=== PATIENT | female | born 1950 | race Caucasian/White ===

== ENCOUNTER → 2017-02-15 | Outpatient (CLI) | payer MEDICARE ==
[2017-02-15 10:16] LABS: Blood Urea Nitrogen 22 mg/dL (7-17)
--- NOTE | 2017-02-15 11:45 | CT ---
EXAMINATION TYPE: CT abdomen pelvis w con DATE OF EXAM: 02/15/2017 COMPARISON: 11/24/2011 INDICATION: Diverticulitis DLP: 1563 mGycm, Automated exposure control for dose reduction was used. CONTRAST: 100 ml mL of Omnipaque 300. Study performed with Oral Contrast TECHNIQUE: Axial images were obtained from above the diaphragm to the pubic rami in the axial plane a t 5 mm thick sections. Reconstructed images are reviewed on the computer in the coronal plane. FINDINGS: Limited CT sections are obtained the lung bases. The lung bases are clear. Moderate size hiatal her maverick is present. There is tortuosity of the descending thoracic aorta. CT ABDOMEN: Liver: Normal Spleen: Normal Pancreas: Normal Adrenal glands: Left adrenal gland has a 1.0 cm hypodense area could be a small angiomyolipoma. This may have been present previously. Right adrenal gland appears unremarkable. Gallbladder: Surgically absent. Kidneys: No masses are evident. No hydronephrosis is present. Small cortical renal cysts are presen t bilaterally. Delayed images were obtained through the kidneys, which remain unremarkable. Aorta: Vascular calcification is within the aorta. Inferior vena cava: Normal. CT PELVIS: There may be some thickening of the wall of the cecum. Mild typhlitis could be considered. Small francisco l loops appear nondilated. Oral contrast extends to the colon. Descending colon has a normal wall kvng iber. Diverticuli are within the descending colon and sigmoid colon without evidence of acute diverti culitis. There are loops of bowel which are incompletely distended or lack oral contrast limiting the ir evaluation. Appendix: Not visualized. No suspicious changes to suggest acute diverticulitis are evident. Urinary bladder: Normal. Genitourinary structures: Uterus and adnexa appear within normal limits. No free fluid is within the pelvis. Osseous structures: No suspicious lytic or sclerotic lesions. Facet degenerative changes are within t he lumbar spine. IMPRESSIONS: 1. There may be some mild thickening of the cecum. Correlate for mild focal colitis. 2. 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 3. Small cortical renal cysts present bilaterally. 4. Diverticulosis without acute diverticulitis within the descending colon and sigmoid colon regions. 5. Moderate size hiatal hernia.
== END | disposition home or self-care (01) ==
LOC: RADCTMAIN 09:27
PROVIDERS: ATTEND Surgery
DX: K57.30 Diverticulosis of large intestine without perforation or abscess without bleeding (principal); K44.9 Diaphragmatic hernia without obstruction or gangrene; N28.1 Cyst of kidney, acquired
CPT/HCPCS: 82565; 84520; 74177; Q9967

== ENCOUNTER 2017-02-24 09:14 | Day surgery (SDC) | payer MEDICARE ==
[2017-02-21 16:09] VITALS: BMI 34.3
[~2017-02-24 09:14] MED LIST: LACTATED RINGERS 1,000 ML IV SCH
[2017-02-24 09:40] VITALS: TEMP 97.8
[2017-02-24] MEDS ORDERED: LIDOCAINE 1% 20 ML VIAL (10MG/ML) FOR IV START INTRADERMA ONE (09:50)
[2017-02-24] MEDS ORDERED: PROPOFOL 10 MG/ML 20 ML VIAL IV ONE (10:09)
[2017-02-24] MEDS ORDERED: fentaNYL (PF) 50 MCG/ML 2 ML AMP ONE (10:09)
[2017-02-24] MEDS ORDERED: GLYCOPYRROLATE 0.2 MG/ML 2 ML VIAL ONE (10:09)
--- NOTE | 2017-02-24 10:12 | P.GSHP ---
History of Present Illness H&P Date: 02/24/17 Chief Complaint: Anthony velazquez is a 66-year-old female referred from Dr. Benedict Elizondo. Patient presents today for colonoscopy. She's had complaints of diverticulitis and diarrhea. Past Medical History Past Medical History: Hypertension History of Any Multi-Drug Resistant Organisms: None Reported Past Surgical History: Cholecystectomy, Joint Replacement, Tubal Ligation Additional Past Surgical History / Comment(s): bilateral knee replacement, D&C, breast biospy Past Anesthesia/Blood Transfusion Reactions: Postoperative Nausea & Vomiting ( PONV) Past Psychological History: No Psychological Hx Reported Smoking Status: Never smoker Past Alcohol Use History: None Reported Past Drug Use History: None Reported - Past Family History Father Family Medical History: Cancer Medications and Allergies Home Medications Medication Instructions Recorded Confirmed Type Hydrochlorothiazide [Hydrodiuril] 25 mg PO DAILY 03/04/14 02/24/17 History amLODIPine BESYLATE/BENAZEPRIL 12.5 mg PO DAILY 03/04/14 02/24/17 History [Lotrel 10-20 mg Capsule] Allergies Allergy/AdvReac Type Severity Reaction Status Date / Time No Known Allergies Allergy Verified 02/24/17 09:30 Surgical - Exam Vital Signs Temp Pulse Resp BP Pulse Ox 97.8 F 69 18 122/83 95 02/24/17 09:39 02/24/17 09:39 02/24/17 09:39 02/24/17 09:39 02/24/17 09:39 - General well developed, no distress - Eyes PERRL - ENT normal pinna - Neck no masses - Respiratory normal expansion - Cardiovascular Rhythm: regular - Abdomen Abdomen: soft, non tender Assessment and Plan Assessment: Diverticulitis Diarrhea We'll perform colonoscopy.
--- NOTE | 2017-02-24 10:36 | P.OP ---
Date of Procedure: 02/24/17 Preoperative Diagnosis: GERD Diverticulitis Diarrhea Postoperative Diagnosis: Antral gastritis Large hiatal hernia Esophagitis Diverticulosis Rectal polyp Normal cecum Procedure(s) Performed: EGD Colonoscopy Anesthesia: MAC Surgeon: Jaziel Moreno Pathology: other (Antrum, esophagus,) Disposition: PACU Description of Procedure: The patient's placed on the endoscopy table in the lateral position. She received IV sedation. The gastroscope placed oropharynx passed in the esophagus and stomach. Scope was then placed through the pylorus. The first and second portion of the duodenum appeared normal. Scope was then brought back the antrum and this appeared mildly inflamed. A biopsies performed. The scope was retroflexed and remainder stomach. There was a large hiatal hernia visualized. The GE junction was at 38 cm. The distal esophagus appeared mildly inflamed a biopsies performed. Proximal esophagus appeared normal. The scope was then withdrawn for patient. Next digital rectal exam was performed which revealed no masses. Flexible colonoscope was then placed patient anus passed rotator colon. The ileocecal valve was visually's. The cecum appeared normal. There is no inflammation the cecum. Scope was then withdrawn remainder the ascending colon, transverse colon appeared normal. In the descending colon was a few scattered diverticula. In the sigmoid colon there was extensive diverticular changes. The scope was then brought back the rectum and a polyp seen this removed with the cold forcep. The scope was then withdrawn for patient.
[2017-02-24 10:46] VITALS: RESP 16
[2017-02-24 11:08] VITALS: BP 103/65; PULSE 54
== END 2017-02-24 11:30 | disposition home or self-care (01) ==
LOC: ORWHC2ENDO 09:14
PROVIDERS: ATTEND Surgery
DX: K29.60 Other gastritis without bleeding (principal); K62.1 Rectal polyp; K44.9 Diaphragmatic hernia without obstruction or gangrene; K57.30 Diverticulosis of large intestine without perforation or abscess without bleeding; I10 Essential (primary) hypertension; Z79.899 Other long term (current) drug therapy
CPT/HCPCS: 88305; 88342; 45380; 43239; J3010; J2704

== ENCOUNTER → 2017-06-29 | Outpatient (CLI) | payer MEDICARE ==
[2017-06-29 11:16] LABS: Basophils % (A) 1 %; Eosinophils # (A) 0.1 k/uL (0-0.7); Eosinophils % (A) 3 %; HCT 45.3 % (34.0-46.0); Lymphocytes # (A) 1.4 k/uL (1.0-4.8); Lymphocytes % (A) 28 %; MCH 31.9 pg (25.0-35.0); MCHC 33.1 g/dL (31.0-37.0); MCV 96.5 fL (80.0-100.0); Mean Platelet Volume 7.3; Monocytes # (A) 0.4 k/uL (0-1.0); Monocytes % (A) 9 %; Neutrophils # (A) 2.8 k/uL (1.3-7.7); Neutrophils % (A) 57 %; Platelet Count 214 k/uL (150-450); RBC 4.69 m/uL (3.80-5.40); RDW 12.6 % (11.5-15.5); WBC 4.9 k/uL (3.8-10.6)
== END | disposition home or self-care (01) ==
LOC: LABPAT 10:33
PROVIDERS: ATTEND Surgery
DX: Z01.818 Encounter for other preprocedural examination (principal); Z01.812 Encounter for preprocedural laboratory examination; K21.0 Gastro-esophageal reflux disease with esophagitis; R13.19 Other dysphagia
CPT/HCPCS: 36415; 84132; 85025; 93005

== ENCOUNTER 2017-07-05 06:55 | Day surgery (SDC) | payer MEDICARE ==
[2017-06-27 08:52] VITALS: BMI 35.0
[~2017-07-05 06:55] MED LIST changes: +DEXAMETHASONE SOD PHOSPHATE 10 MG/ML 1 ML VIAL IV ONE; +HEPARIN SODIUM,PORCINE 5,000 UNIT/ML 1 ML VIAL SQ ONE; +LIDOCAINE 1% 20 ML VIAL (10MG/ML) FOR IV START INTRADERMA PRN; +MORPHINE SULFATE 4 MG/ML SYRINGE IV PRN; +ONDANSETRON 4 MG/2 ML VIAL IVP ONE; +ceFAZolin IN SWFI 2 GM/20 ML SYRINGE IVP ONE
--- NOTE | 2017-07-05 07:55 | P.GSHP ---
History of Present Illness H&P Date: 07/05/17 Chief Complaint: GERD, dysphagia This is a 66-year-old female who presents today for laparoscopic Herman fundoplication. Patient has undergone previous EGD. She is found have a large hiatal hernia. She's had GERD and dysphagia symptoms. Patient's where the surgery including conversion open procedure and injury to the stomach liver and spleen. She is also aware the risk of recurrent GERD symptoms. Past Medical History Past Medical History: Hypertension, Osteoarthritis (OA) Additional Past Medical History / Comment(s): hiatal hernia, diverticulitis, "leaky heart valve". current fungal infection armpits and under breast treating with nystatin History of Any Multi-Drug Resistant Organisms: None Reported Past Surgical History: Cholecystectomy, Joint Replacement, Tubal Ligation Additional Past Surgical History / Comment(s): bilateral knee replacement, D&C, breast biospy Past Anesthesia/Blood Transfusion Reactions: Postoperative Nausea & Vomiting ( PONV) Smoking Status: Never smoker - Past Family History Father Family Medical History: Cancer Mother Family Medical History: No Reported History Medications and Allergies Home Medications Medication Instructions Recorded Confirmed Type Hydrochlorothiazide [Hydrodiuril] 12.5 mg PO DAILY 03/04/14 07/05/17 History Losartan Potassium [Cozaar] 100 mg PO DAILY 06/27/17 07/05/17 History Nystatin 15 gm TP BID 06/27/17 07/05/17 History Allergies Allergy/AdvReac Type Severity Reaction Status Date / Time No Known Allergies Allergy Verified 07/05/17 07:07 Surgical - Exam Vital Signs Temp Pulse Resp BP Pulse Ox 97.8 F 73 16 132/79 96 07/05/17 07:08 07/05/17 07:08 07/05/17 07:08 07/05/17 07:08 07/05/17 07:08 - General well developed, no distress - Eyes PERRL - ENT normal pinna - Neck no masses - Respiratory normal expansion - Cardiovascular Rhythm: regular - Abdomen Abdomen: soft, non tender Assessment and Plan Assessment: GERD, dysphagia Large hiatal hernia We'll perform laparoscopic Herman fundal plication.
[2017-07-05] MEDS ORDERED: SUCCINYLCHOLINE CHLORIDE 100 MG/5 ML SYR IV ONE (07:59)
[2017-07-05] MEDS ORDERED: HYDROmorphone (PF) 1 MG/ML ONE (07:59)
[2017-07-05] MEDS ORDERED: LIDOCAINE 1% INJ 10MG/ML (20 ML MDV) ONE (07:59)
[2017-07-05] MEDS ORDERED: PROPOFOL 10 MG/ML 20 ML VIAL IV ONE (07:59)
[2017-07-05] MEDS ORDERED: ePHEDrine SULFATE/0.9% NACL/PF 50 MG/5 ML SYRINGE IV ONE (07:59)
[2017-07-05] MEDS ORDERED: NEOSTIGMINE 1 MG/ML 10 ML VIAL ONE (07:59)
[2017-07-05] MEDS ORDERED: ROCURONIUM BROMIDE 10 MG/ML 10 ML VIAL IV ONE (07:59)
[2017-07-05] MEDS ORDERED: fentaNYL (PF) 50 MCG/ML 2 ML AMP ONE (07:59)
[2017-07-05] MEDS ORDERED: GLYCOPYRROLATE 0.2 MG/ML 2 ML VIAL ONE (07:59)
[2017-07-05] MEDS ORDERED: MIDAZOLAM 2 MG/2 ML VIAL ONE (07:59)
[2017-07-05] MEDS ORDERED: BUPIVACAINE (PF) 0.5% 30 ML VIAL SQ ONE (08:31)
[2017-07-05] MEDS ORDERED: LACTATED RINGERS 1,000 ML IV ONE (08:52)
[2017-07-05] MEDS ORDERED: HYDROmorphone 0.5 MG/0.5 ML SYRINGE IVP PRN (09:17)
--- NOTE | 2017-07-05 09:17 | P.OP ---
Date of Procedure: 07/05/17 Preoperative Diagnosis: GERD Postoperative Diagnosis: GERD Procedure(s) Performed: Laparoscopic Herman fundoplication Anesthesia: ERNESTINE Surgeon: Jaziel Moreno Pathology: none sent Condition: stable Disposition: PACU Description of Procedure: The patient was placed on the operating table in the supine position. The patient received general anesthesia. And was placed in dorsal lithotomy position. The patient was prepped and draped in the usual sterile fashion. The skin incision sites were anesthetized with 1% local Xylocaine. The skin was incised in the left periumbilical area and then using a blade less 5 mm trocar under direct visualization panel cavity was entered. After adequate insufflation the laparoscope was then placed into the peritoneal cavity. Next a 5 mm trochars placed in the right epigastric position. Another 5 millimeter trocar the right lateral position. Another 5 millimeter trocar in the left lateral position a 5 mm trocar is placed in the left epigastric position. And then the initial 5 mm trocar was exchanged for a 10 mm trocar. The left lateral lobe liver was retracted. The hernia was seen. The crural defect was then dissected using the Harmonic scissors device. A 360 crural dissection was performed the esophagus stomach was reduced back into the peritoneal Cavity. The crural defect was then closed using 2-0 Ethibond suture. Next the fundus of the stomach was mobilized using the [place] scissors device. and then a 58-Hebrew bougie dilator was placed oropharynx passed into the esophagus and stomach the fundal plication wrap was then performed by grasping the fundus posteriorly and bringing it around the esophagus and stomach fundoplication was then performed using 2-0 Ethibond suture. Care was taken that the fundal location rested over top of the intra-abdominal esophagus. There was no injury seen to the stomach or esophagus. The dilator was then withdrawn. The abdomen was irrigated there is no bleeding seen. The trochars were then withdrawn and then skin incision sites were closed using 3-0 Monocryl suture Steri-Strips are applied. Patient thought procedure well and sent to recovery room in stable condition.
[2017-07-05] MEDS: HYDROmorphone 0.5 MG/0.5 ML SYRINGE IVP ONE ×2 (09:34→09:45)
[2017-07-05] MEDS: METOCLOPRAMIDE 5 MG/ML 2 ML VIAL IVP SCH ×2 (11:36→19:26)
[2017-07-05] MEDS: D5-0.45% NACL WITH KCL 20MEQ/L 1,000 ML IV SCH ×2 (11:49→20:13)
--- NOTE | 2017-07-05 15:02 | FL ---
EXAMINATION TYPE: FL esophagus cervic/pharynx DATE OF EXAM: 07/05/2017 HISTORY: Status post Calvin fundoplication COMPARISON: NONE TECHNIQUE: Single-contrast water-soluble Limited esophagram is performed FINDINGS: A few tertiary contractions were observed during the exam. No extravasation is evident. There is only mild hesitancy passing through the Calvin fundoplication. Stomach appears unremarkable. Overhead radiographs were obtained. No extravasation is evident. No significant free air is evident. Fluoroscopy time: 53 seconds Images: 11 IMPRESSION: 1. No extravasation or significant hesitancy status post Calvin fundoplication. 2. Presbyesophagus
[2017-07-06] MEDS: METOCLOPRAMIDE 5 MG/ML 2 ML VIAL IVP SCH ×2 (01:38→07:08)
[2017-07-06] MEDS: D5-0.45% NACL WITH KCL 20MEQ/L 1,000 ML IV SCH (03:00)
[2017-07-06] MEDS ORDERED: ENOXAPARIN 40 MG/0.4 ML SYRINGE SQ SCH (09:00)
[2017-07-06 09:22] VITALS: BP 139/79; PULSE 75; RESP 18; TEMP 98.1
--- NOTE | 2017-07-06 10:34 | P.DS ---
Providers Expected date of discharge: 07/06/17 Attending physician: Jaziel Moreno Consults: 07/05/17 09:17 Consult Physician Routine Consulting Provider: Benedict Cruz Consult Reason/Comments: Medical management Do you want consulting provider notified?: Yes Primary care physician: Benedict Cruz [facility] Course: 66-year-old female who has history of recurrent GERD symptoms. Presented to undergo an elective laparoscopic Herman fundoplication on the 05 of July. Patient had undergone a previous EGD which did show a large hiatal hernia. Given patient's symptoms of GERD with dysphagia elected to undergo procedure. Postop no events. Patient was up ambulating on the unit passing gas rectally and belching no stool tolerating a full liquid diet esophagram showed no evidence of a leak felt to be stable appropriate to proceed with a discharge to home Plan - Discharge Summary Discharge Rx Participant: Yes New Discharge Prescriptions: Continue Hydrochlorothiazide [Hydrodiuril] 12.5 mg PO DAILY Losartan Potassium [Cozaar] 100 mg PO DAILY Nystatin 15 gm TP BID Discharge Medication List Hydrochlorothiazide [Hydrodiuril] 12.5 mg PO DAILY 03/04/14 [History] Losartan Potassium [Cozaar] 100 mg PO DAILY 06/27/17 [History] Nystatin 15 gm TP BID 06/27/17 [History] Follow up Appointment(s)/Referral(s): Jaziel Moreno MD [STAFF PHYSICIAN] - 2 Weeks Activity/Diet/Wound Care/Special Instructions: No tub bath for six weeks. Shower daily. No lifting over 10 pounds for the next 6 weeks. Maintain full liquid diet for 2 weeks do not advance May use ice packs to surgical site. Ambulate every hour while awake Do not remove the plastic dressings from surgical sites Discharge Disposition: HOME SELF-CARE
--- NOTE | 2017-07-06 11:35 | P.CONS ---
History of Present Illness - Reason for Consult Consult date: 07/06/17 Medical Management - Chief Complaint s/p Herman fundoplication - History of Present Illness 66-year-old female who underwent elective laparoscopic Calvin fundoplication on 07/06/[address] Moreno for history of gastroesophageal reflux disease. Dr. Cruz was consulted for medical management. The patient has a medical history of hypertension and osteoarthritis. The patient was seen and examined at the bedside in rounds with Dr. Cruz. She is awake and alert. She is tolerating a full liquid diet. Denies nausea or vomiting. She is passing gas. No bowel movement since surgery. She states her pain is tolerable. Laparoscopic surgical sites without drainage or signs of infection. Incentive spirometer is at the bedside and patient states she is using 10 times an hour. Patient remains medically stable. She is afebrile. Last recorded pressure 139/79. She is on room air with oxygen saturations greater than 92%. She is anticipating discharge home today. Review of Systems GENERAL: Patient denies fever. Denies chills. EYES: Denies blurred vision. Denies vision changes. Denies eye pain. EARS, NOSE, MOUTH, & THROAT: Denies headache. Denies sore throat. Denies ear pain. RESPIRATORY: Denies cough. Denies shortness of breath. Denies sputum production. Denies hemoptysis. CARDIOVASCULAR: Denies chest pain or pressure. Denies palpitations. Denies arrhythmias. GASTROINTESTINAL: History of GERD. Denies abdominal pain. Denies diarrhea. Denies constipation. Denies nausea. Denies vomiting. Denies blood in the stool. GENITOURINARY: Denies urinary frequency. Denies burning. Denies dysuria. Denies cloudy urine. Denies blood in the urine. MUSCULOSKELETAL: Denies myalgias. Denies joint swelling. Denies decreased range of motion beyond patients baseline. INTEGUMENTARY: Denies pruitis. Denies rash. PSYCHIATRIC: Denies suicidal or homicial ideations. ENDOCRINE: Denies weight change. Denies polydipsia. Denies polyuria. HEMATOLOGIC: Denies bleeding disorders. Past Medical History Past Medical History: Hypertension, Osteoarthritis (OA) Additional Past Medical History / Comment(s): hiatal hernia, diverticulitis, "leaky heart valve". current fungal infection armpits and under breast treating with nystatin History of Any Multi-Drug Resistant Organisms: None Reported Past Surgical History: Cholecystectomy, Joint Replacement, Tubal Ligation Additional Past Surgical History / Comment(s): bilateral knee replacement, D&C, breast biospy, Herman fundiplication Past Anesthesia/Blood Transfusion Reactions: Postoperative Nausea & Vomiting ( PONV) Past Psychological History: No Psychological Hx Reported Smoking Status: Never smoker Past Alcohol Use History: None Reported Past Drug Use History: None Reported - Past Family History Father Family Medical History: Cancer Mother Family Medical History: No Reported History Medications and Allergies Home Medications Medication Instructions Recorded Confirmed Type Hydrochlorothiazide [Hydrodiuril] 12.5 mg PO DAILY 03/04/14 07/05/17 History Losartan Potassium [Cozaar] 100 mg PO DAILY 06/27/17 07/05/17 History Nystatin 15 gm TP BID 06/27/17 07/05/17 History Allergies Allergy/AdvReac Type Severity Reaction Status Date / Time No Known Allergies Allergy Verified 07/05/17 11:43 Physical Exam Vitals: Vital Signs Temp Pulse Resp BP Pulse Ox 07/06/17 08:20 98.1 F 75 18 139/79 93 L 07/06/17 06:05 97.4 F L 69 16 145/78 92 L 07/06/17 00:00 76 18 07/05/17 23:00 97.9 F 76 18 138/71 95 07/05/17 20:10 78 18 07/05/17 19:34 98.2 F 78 16 119/67 95 07/05/17 15:44 98.0 F 76 16 117/65 95 07/05/17 13:10 69 16 134/75 94 L 07/05/17 12:10 73 16 133/86 94 L 07/05/17 11:40 67 16 117/63 94 L Intake and Output 07/05/17 07/06/17 07/06/17 22:59 06:59 14:59 Intake Total 600 Output Total 450 1350 250 Balance 150 -1350 -250 Intake: Oral 600 Output: Urine 450 1350 250 Other: Voiding Method Toilet Toilet # Voids 1 GENERAL: This is a 66-year-old female in no apparent distress at the time of examination. Pleasant and cooperative. HEENT: Head is atraumatic, normocephalic. Pupils are equal, round, and reactive to light. Sclerae anicteric. Conjunctivae are clear. Mucus membranes of the mouth are moist. Neck is supple. RESPIRATORY: Clear to ausculation. No wheezes, rales, or rhonchi. No use of accessory muscles. Patient maintaining oxygen saturation greater than 92%. No chest wall tenderness is noted on palpation or with deep breathing. CARDIOVASCULAR: Regular rate and rhythm. S1 and S2 noted. No systolic or diastolic murmur auscultated. No JVD noted. No S3 or S4 noted. GASTROINTESTINAL: Laparoscopic surgical sites without drainage or signs of infection. No distention noted. Abdomen soft and round. Bowel sounds auscultated x 4 quadrants. INTEGUMENTARY: No cyanosis. No jaundice. No rashes noted. No cellulitis noted. EXTREMITIES: 2+ peripheral pulses. No evidence of peripheral edema. No calf tenderness noted. NEUROLOGIC: Cranial nerves II-XII intact. PSYCHIATRIC: Awake, alert, and oriented X 3. Appropriate affect. Intact judgement and insight. Assessment and Plan Plan: ASSESSMENT: Gastroesophageal reflux disease, s/p laparoscopic Calvin fundoplication, POD #1 Hypertension Osteoarthritis Obesity: BMI 35.0 PLAN: Continue postoperative management per Dr. Moreno. Advance diet per surgery. Pain control. Increase activity as tolerated. Incentive spirometer 10 times an hour. Resume home medications. Patient is stable for discharge from a medical standpoint when cleared by Dr. Moreno Nurse practitioner note has been reviewed by physician. Signing provider agrees with the documented findings, assessment, and plan of care.
== END 2017-07-06 10:55 | disposition home or self-care (01) ==
LOC: OR 06:55 → EDSTATUS 07:45 → 6PED 09:10 → OR 07-06 10:55
PROVIDERS: ATTEND Surgery
DX: K21.9 Gastro-esophageal reflux disease without esophagitis (principal); K44.9 Diaphragmatic hernia without obstruction or gangrene; I10 Essential (primary) hypertension; M19.90 Unspecified osteoarthritis, unspecified site; H91.90 Unspecified hearing loss, unspecified ear; I38 Endocarditis, valve unspecified; B48.8 Other specified mycoses; Z79.899 Other long term (current) drug therapy
CPT/HCPCS: 74210; 43280; J2250; J1644; J1100; J2710; J2765 ×2; J2405; J2001; J1650; J3010; J1170 ×2; J0330; J2704; J0690

== ENCOUNTER → 2017-12-08 | Outpatient (CLI) | payer MEDICARE ==
--- NOTE | 2017-12-11 09:27 | MM ---
Reason for exam: screening (asymptomatic). Last mammogram was performed 1 year ago. History: Patient is postmenopausal. Benign excisional biopsy of the right breast. Physical Findings: A clinical breast exam by your physician is recommended on an annual basis and results should be correlated with mammographic findings. MG 3D Screening Mammo W/Cad Bilateral CC and MLO view(s) were taken. Prior study comparison: December 07, 2016, bilateral MG 3d screening mammo w/cad. January 29, 2015, bilateral MG screening mammo w CAD. There are scattered fibroglandular densities. There is no discrete abnormality. No significant changes when compared with prior studies. ASSESSMENT: Negative, BI-RAD 1 RECOMMENDATION: Routine screening mammogram of both breasts in 1 year.
== END ==
LOC: RADMAMWWP 10:14
PROVIDERS: ATTEND Family Medicine
DX: Z12.31 Encounter for screening mammogram for malignant neoplasm of breast (principal)
CPT/HCPCS: 77063; 77067

== ENCOUNTER → 2018-10-18 | Outpatient (CLI) | payer MEDICARE ==
[2018-10-18 15:29] LABS: Basophils # (A) 0.1 k/uL (0-0.2); Basophils % (A) 1 %; Eosinophils # (A) 0.2 k/uL (0-0.7); Eosinophils % (A) 3 %; HCT 45.2 % (34.0-46.0); Lymphocytes # (A) 1.4 k/uL (1.0-4.8); Lymphocytes % (A) 20 %; MCH 32.5 pg (25.0-35.0); MCHC 33.2 g/dL (31.0-37.0); MCV 97.9 fL (80.0-100.0); Mean Platelet Volume 8.1; Monocytes # (A) 0.6 k/uL (0-1.0); Monocytes % (A) 8 %; Neutrophils # (A) 4.5 k/uL (1.3-7.7); Neutrophils % (A) 65 %; Platelet Count 237 k/uL (150-450); RBC 4.62 m/uL (3.80-5.40); RDW 13.9 % (11.5-15.5); WBC 6.8 k/uL (3.8-10.6)
== END | disposition home or self-care (01) ==
LOC: LABWHC1 15:12
PROVIDERS: ATTEND Nurse Practitioner Adult Health
DX: R06.09 Other forms of dyspnea (principal)
CPT/HCPCS: 36415; 85025

== ENCOUNTER → 2018-11-19 | Outpatient (CLI) | payer MEDICARE ==
[2018-11-19 12:37] LABS: HCT 43.3 % (34.0-46.0); HGB 13.8 gm/dL (11.4-16.0); MCH 32.3 pg (25.0-35.0); MCHC 31.8 g/dL (31.0-37.0); MCV 101.4 fL (80.0-100.0); Mean Platelet Volume 8.1; Platelet Count 205 k/uL (150-450); Potassium 4.2 mmol/L (3.5-5.1); RBC 4.27 m/uL (3.80-5.40); RDW 12.1 % (11.5-15.5); WBC 5.6 k/uL (3.8-10.6)
== END | disposition home or self-care (01) ==
LOC: LABPAT 11:28
PROVIDERS: ATTEND Internal Medicine Interventional Cardiology
DX: Z01.812 Encounter for preprocedural laboratory examination (principal); I48.0 Paroxysmal atrial fibrillation
CPT/HCPCS: 36415; 80051; 82565; 84520; 85027

== ENCOUNTER 2018-11-20 10:37 | Day surgery (SDC) | payer MEDICARE ==
[2018-11-19 10:58] VITALS: BMI 34.3
[~2018-11-20 10:37] MED LIST changes: +ALPRAZolam 0.25 MG TAB PO PRN; +ALPRAZolam 0.5 MG TAB PO PRN; +ASPIRIN 325 MG TAB PO STA; +ATORVASTATIN 80 MG TAB PO STA; -DEXAMETHASONE SOD PHOSPHATE 10 MG/ML 1 ML VIAL IV ONE; -HEPARIN SODIUM,PORCINE 5,000 UNIT/ML 1 ML VIAL SQ ONE; -LACTATED RINGERS 1,000 ML IV SCH; -LIDOCAINE 1% 20 ML VIAL (10MG/ML) FOR IV START INTRADERMA PRN; -MORPHINE SULFATE 4 MG/ML SYRINGE IV PRN; +NITROGLYCERIN SL TABS 0.4 MG TAB SUBLINGUAL PRN; -ONDANSETRON 4 MG/2 ML VIAL IVP ONE; +SODIUM CHLORIDE 0.9% 1,000 ML in EMPTY BAG 1 BAG IV ONE; -ceFAZolin IN SWFI 2 GM/20 ML SYRINGE IVP ONE
[2018-11-20] MEDS ORDERED: SODIUM CHLORIDE 0.9% 1,000 ML IV ONE (11:22)
[2018-11-20] MEDS ORDERED: HEPARIN SODIUM 1,000 UN/ML (10ML VL) ONE (12:23)
[2018-11-20] MEDS ORDERED: LIDOCAINE 1% INJ 10MG/ML (20 ML MDV) ONE (12:23)
[2018-11-20] MEDS ORDERED: VERAPAMIL 2.5 MG/ML 2 ML AMP ONE (12:23)
[2018-11-20] MEDS ORDERED: fentaNYL (PF) 50 MCG/ML 2 ML AMP ONE (12:23)
[2018-11-20] MEDS ORDERED: fentaNYL (PF) 50 MCG/ML 2 ML AMP IVP ONE (14:05)
[2018-11-20] MEDS ORDERED: LIDOCAINE 1% INJ 10MG/ML (20 ML MDV) SQ ONE (14:07)
[2018-11-20] MEDS ORDERED: VERAPAMIL SYRINGE (5 MG/10 ML) INTRAARTER ONE (14:08)
[2018-11-20] MEDS ORDERED: MIDAZOLAM PF (FBP) 2 MG/2 ML VIAL IVP ONE (14:22)
[2018-11-20] MEDS ORDERED: IOPAMIDOL-370 125ML BTL INJ ONE (14:31)
[2018-11-20] MEDS ORDERED: HEPARIN SODIUM 1,000 UN/ML (10ML VL) IV ONE (14:39)
[2018-11-20] MEDS ORDERED: IOPAMIDOL-250 100ML BTL INTRAARTER ONE (14:44)
[2018-11-20] MEDS ORDERED: RX INFO: IV CONTRAST WAS GIVEN 1 EACH MISC MISCELLANE PRN (14:50)
[2018-11-20] MEDS ORDERED: SODIUM CHLORIDE 0.9% 1,000 ML IV SCH (15:00)
[2018-11-20 15:41] VITALS: TEMP 98.3
[2018-11-20 18:23] VITALS: BP 117/73; PULSE 91
--- NOTE | 2018-11-20 19:35 | CC ---
CARDIAC CATHETERIZATION REPORT Ms. Pabon is a 68-year-old female with known history of hypertension who had paroxysmal atrial fibrillation and episode of chest discomfort. She had a stress test that raised the possibility of anteroapical ischemia. In view of that, recommendation made regarding cardiac catheterization. The procedure as well as risks and complications were discussed with the patient who is in full understanding and agreement. DESCRIPTION OF PROCEDURE: Patient was brought to pharmacy laboratory technician in a fasting semi-sedated state after receiving fentanyl and Benadryl and achieving moderate conscious sedated state. A 6- Ivorian sheath was introduced in the right radial artery. Attempts to cannulate the right coronary artery were unsuccessful because of a tight loop in the right subclavian artery. The left coronary angiography was performed using a 6-Ivorian Radames catheter. Images of the left coronary system were obtained. Following that, a using Xylocaine anesthesia and Seldinger technique, a 6 Ivorian sheath was introduced in the right femoral artery and right coronary angiography was performed using a 5-Ivorian 4 bend right and left Nettie' catheter. Multiple views of the coronary artery including hemiaxial views were obtained. The Nettie catheter was used to cross the aortic valve and pressures were calculated. Following that, catheter and sheath were removed. Hemostasis was obtained with deployment of an Angio-Seal in the right femoral artery and placement of a TR band in the right radial artery. Of note, the patient received intraarterial verapamil as well as 5000 units of intravenous heparin, there was no immediate complication. FINDINGS: LEFT MAIN: This is a large-sized vessel bifurcating into left circumflex, left anterior descending artery, left main coronary artery has no evidence of obstructive disease. LEFT ANTERIOR DESCENDING CORONARY ARTERY: This is a large-sized vessel reaching towards the apex giving rise to a moderately sized diagonal branch. In the mid segment of LAD after the diagonal takeoff, there is about a 20% plaque. The rest of the vessel has no high-grade stenosis. LEFT CIRCUMFLEX: This is a nondominant vessel giving rise to 2 obtuse marginal branches of moderate to-large caliber. The left circumflex as well as branches have no evidence of obstructive coronary artery disease. RIGHT CORONARY ARTERY: This is a large-sized vessel dominant bifurcating distally PDA and posterolateral segment branches. The right coronary artery has a 20% to 30% plaque proximally. The rest of the vessel has no high-grade stenosis. LEFT VENTRICULOGRAM: Left ventriculogram is not performed. HEMODYNAMICS: There was no gradient across the aortic valve. The left ventricular end- diastolic pressure was 12 mmHg. CONCLUSION: 1. Mild disease involving the proximal right coronary artery and the mid left anterior descending coronary artery. 2. Normal end-diastolic pressure. RECOMMENDATION: In view of findings and anatomy, I recommend continue medical therapy with aggressive coronary risk modifications that have been initiated. Those findings and recommendations were discussed with the patient and her family who are in full understanding and agreement. The patient will be initiated on anticoagulation and antiarrhythmic with the attempt to restore and maintain sinus mechanism. DURATION OF PROCEDURE: 38 minutes. MMODL / IJN: [id number] / MTDShahla
--- NOTE | 2018-11-20 19:39 | CC ---
CARDIAC CATHETERIZATION REPORT DATE OF SERVICE: 11/20/[address] Cruz: I had the pleasure of performing cardiac catheterization on Mrs Pabon at [facility] on the 20 of November and a full copy of procedure note will be forwarded to you. In brief, she was found to have mild disease involving the LAD in the right coronary artery without any evidence of high-grade stenosis. Based on those findings, I have recommended continued medical therapy with the aggressive risk factor modifications that you have initiated. Anticoagulation will be initiated in addition to antiarrhythmic with the hope to restore and maintain sinus mechanism. I will keep you updated on her progress. Thank you again for allowing me to participate in her care. Please feel free to call for any questions. Sincerely yours, MMZARAL / IJN: [id number] /
[2018-11-20 21:54] VITALS: RESP 16
[2018-11-21] MEDS ORDERED: HYDROCHLOROTHIAZIDE 25 MG TAB PO SCH (09:00)
[2018-11-21] MEDS ORDERED: LOSARTAN 50 MG TAB PO SCH (09:00)
== END 2018-11-20 22:00 | disposition home or self-care (01) ==
LOC: CATHCVL 10:37 → 1SOBS 14:43 → CATHCVL 22:00
PROVIDERS: ATTEND Internal Medicine Interventional Cardiology
DX: I25.10 Atherosclerotic heart disease of native coronary artery without angina pectoris (principal); I10 Essential (primary) hypertension; I48.0 Paroxysmal atrial fibrillation; I35.1 Nonrheumatic aortic (valve) insufficiency; Z79.82 Long term (current) use of aspirin; Z79.899 Other long term (current) drug therapy
CPT/HCPCS: 93458; C1760; C1769 ×2; C1894; J2001; J3010; J1644; Q9966; Q9967; J2250

== ENCOUNTER → 2019-01-08 | Outpatient (CLI) | payer MEDICARE ==
[2019-01-08 16:24] LABS: African American GFR (CKD) 75.6 (60.0-200.0); Albumin 4.2 g/dL (3.80-4.90); Albumin/Globulin Ratio 2.8 (1.60-3.17); Anion Gap 7.5 mmol/L (4.00-12.00); Calcium 9.9 mg/dL (8.7-10.3); Carbon Dioxide 27.5 mmol/L (21.6-31.8); Chol/HDL Ratio 3.96; Globulin 1.5 g/dL (1.6-3.3); LDL Cholesterol,Calculated 113.8 mg/dL (0.0-131.0); Non-African American GFR(CKD) 65.2 (60.0-200.0); Potassium 4.4 mmol/L (3.5-5.5); Total Bilirubin 0.7 mg/dL (0.3-1.2); Total Protein 5.7 g/dL (6.2-8.2); VLDL Calculation 19.2 mg/dL (5.00-40.00)
== END | disposition home or self-care (01) ==
LOC: LABWHC1 08:23
PROVIDERS: ATTEND Internal Medicine Interventional Cardiology
DX: E78.2 Mixed hyperlipidemia (principal)
CPT/HCPCS: 36415; 80053; 80061; 83735

== ENCOUNTER → 2019-02-01 | Outpatient (CLI) | payer MEDICARE ==
--- NOTE | 2019-02-04 10:37 | MM ---
Reason for exam: screening (asymptomatic). Last mammogram was performed 1 year and 2 months ago. History: Patient is postmenopausal. Benign excisional biopsy of the right breast. Physical Findings: A clinical breast exam by your physician is recommended on an annual basis and results should be correlated with mammographic findings. MG 3D Screening Mammo W/Cad Bilateral CC and MLO view(s) were taken. Prior study comparison: December 08, 2017, bilateral MG 3d screening mammo w/cad. December 07, 2016, bilateral MG 3d screening mammo w/cad. There are scattered fibroglandular densities. There is no discrete abnormality. No significant changes when compared with prior studies. ASSESSMENT: Negative, BI-RAD 1 RECOMMENDATION: Routine screening mammogram of both breasts in 1 year.
== END | disposition home or self-care (01) ==
LOC: RADMAMWWP 08:59
PROVIDERS: ATTEND Family Medicine
DX: Z12.31 Encounter for screening mammogram for malignant neoplasm of breast (principal)
CPT/HCPCS: 77063; 77067

== ENCOUNTER → 2020-02-10 | Outpatient (CLI) | payer MEDICARE ==
--- NOTE | 2020-02-10 15:30 | BD ---
EXAMINATION TYPE: Axial Bone Density DATE OF EXAM: 02/10/2020 COMPARISON: DEXA bone scan January 11, 2018 CLINICAL HISTORY: Postmenopausal female. Disorder of bone. Height: 5 FT 3 IN Weight: 214 FRAX RISK QUESTIONS: Alcohol (3 or more units per day): NO Family History (Parent hip fracture): NO Glucocorticoids (More than 3mos): NO (Ex: prednisone, prednisolone, methylprednisolone, dexamethasone, and hydrocortisone). History of Fracture in Adulthood: NO Secondary Osteoporosis: 1. Type 1 Diabetes: NO 2. Hyperthyroidism: NO 3. Menopause before 45: NO 4. Malnutrition: NO 5. Chronic liver disease: NO Rheumatoid Arthritis: YES Current Tobacco Use: NO RISK FACTORS HISTORY OF: Family History of Osteoporosis: NO Active: YES Diet low in dairy products/other sources of calcium: NO Postmenopausal woman: AGE 54 Lost more than 2 inches in height since high school: YES MEDICATIONS: Additional Medications: BLOOD PRESSURE MEDS, ELEQUIS,FLECANAIDE Additional History: EXAM MEASUREMENTS: Bone mineral densitometry was performed using the [employer] System. Bone mineral density as measured about the Lumbar spine is: ----- L1-L4(G/cm2): 1.009 T Score Values are as follows: ----- L2: -1.2 ----- L3: -1.5 ----- L4: -1.2 ----- L1-L4: -1.4 Bone mineral density has: DECREASED -1.2 % since study of: 2017 Bone mineral density about the R hip (g/cm2): 0.698 Bone mineral density about the L hip (g/cm2): 0.789 T Score values are as follows: -----R Neck: -2.4 -----L Neck: -1.8 -----R Total: -1.5 -----L Total: -1.5 Bone mineral density has: DECREASED -0.2 % since study of: 2017 IMPRESSION: Osteopenia (T Score between -2.5 and -1) remains present. There remains slightly increased risk of fracture and the patient may be considered for treatment. Re-Screen 2-5 years. NOTE: T-SCORE=SD OF THE YOUNG ADULT MEAN.
== END | disposition home or self-care (01) ==
LOC: RADBDWWP 13:27
PROVIDERS: ATTEND Obstetrics & Gynecology
DX: M85.80 Other specified disorders of bone density and structure, unspecified site (principal)
CPT/HCPCS: 77080

== ENCOUNTER → 2020-02-12 | Outpatient (CLI) | payer MEDICARE ==
--- NOTE | 2020-02-17 11:15 | MM ---
Reason for exam: screening (asymptomatic). Last mammogram was performed 1 year ago. History: Patient is postmenopausal. Benign excisional biopsy of the right breast. Physical Findings: A clinical breast exam by your physician is recommended on an annual basis and results should be correlated with mammographic findings. MG 3D Screening Mammo W/Cad Bilateral CC and MLO view(s) were taken. Prior study comparison: February 01, 2019, bilateral MG 3d screening mammo w/cad. December 08, 2017, bilateral MG 3d screening mammo w/cad. There are scattered fibroglandular densities. No significant changes when compared with prior studies. ASSESSMENT: Negative, BI-RAD 1 RECOMMENDATION: Routine screening mammogram of both breasts in 1 year.
== END | disposition home or self-care (01) ==
LOC: RADMAMWWP 08:32
PROVIDERS: ATTEND Obstetrics & Gynecology
DX: Z12.31 Encounter for screening mammogram for malignant neoplasm of breast (principal)
CPT/HCPCS: 77063; 77067

== ENCOUNTER → 2020-08-20 | Outpatient (CLI) | payer MEDICARE ==
[2020-08-20 15:24] LABS: African American GFR (CKD) 75.1 (60.0-200.0); Anion Gap 3.7 mmol/L (4.00-12.00); BUN/Creat Ratio 24.44 Ratio (12.00-20.00); Calcium 10.2 mg/dL (8.7-10.3); Carbon Dioxide 30.3 mmol/L (21.6-31.8); Non-African American GFR(CKD) 64.8 (60.0-200.0); Potassium 4.2 mmol/L (3.5-5.5)
== END | disposition home or self-care (01) ==
LOC: LABWHC1 09:06
PROVIDERS: ATTEND Nurse Practitioner Adult Health
DX: I10 Essential (primary) hypertension (principal)
CPT/HCPCS: 36415; 80048

== ENCOUNTER → 2021-02-15 | Outpatient (CLI) | payer MEDICARE ==
--- NOTE | 2021-02-15 11:40 | MM ---
Reason for exam: screening (asymptomatic). Last mammogram was performed 1 year ago. History: Patient is postmenopausal. Benign excisional biopsy of the right breast, 1987. Physical Findings: A clinical breast exam by your physician is recommended on an annual basis and results should be correlated with mammographic findings. MG 3D Screening Mammo W/Cad Bilateral CC and MLO view(s) were taken. Prior study comparison: February 12, 2020, bilateral MG 3d screening mammo w/cad. February 01, 2019, bilateral MG 3d screening mammo w/cad. There are scattered fibroglandular densities. There are benign appearing round vascular calcifications bilaterally. ASSESSMENT: Benign, BI-RAD 2 RECOMMENDATION: Routine screening mammogram of both breasts in 1 year.
== END | disposition home or self-care (01) ==
LOC: RADMAMWWP 09:04
PROVIDERS: ATTEND Obstetrics & Gynecology
DX: Z12.31 Encounter for screening mammogram for malignant neoplasm of breast (principal)
CPT/HCPCS: 77063; 77067

== ENCOUNTER → 2021-07-08 | Outpatient (CLI) | payer MEDICARE ==
[2021-07-08 23:24] LABS: ALT 25 U/L (8-44); AST 18 U/L (13-35); Chol/HDL Ratio 2.46 Ratio; LDL Cholesterol,Calculated 53.6 mg/dL (0.0-131.0)
== END | disposition home or self-care (01) ==
LOC: LABWHC1 09:01
PROVIDERS: ATTEND Internal Medicine Interventional Cardiology
DX: E78.2 Mixed hyperlipidemia (principal)
CPT/HCPCS: 36415; 80061; 84450; 84460

== ENCOUNTER → 2022-08-30 | Outpatient (CLI) | payer MEDICARE ==
--- NOTE | 2022-08-31 15:03 | MM ---
Reason for Exam: Screening (asymptomatic). Last mammogram was performed 1 year(s) and 6 month(s) ago. Patient History: Menarche at age 12. First Full-Term at age 20. Postmenopausal. 1988, Benign Excisional Biopsy on the right side. Risk Values: Cynthia 5 year model risk: 1.9%. NCI Lifetime model risk: 4.8%. Prior Study Comparison: 02/01/2019 Bilateral Screening Mammogram, [facility]. 02/12/2020 Bilateral Screening Mammogram, [facility]. 02/15/2021 Bilateral Screening Mammogram, [facility]. Tissue Density: There are scattered fibroglandular densities. Findings: Analyzed By CAD. Pattern appears symmetrical and stable. No significant interval changes are. No suspicious groups of microcalcifications, spiculated or lobular masses, architectural distortion or other secondary signs of malignancy are mammographically apparent. Overall Assessment: Benign, BI-RAD 2 Management: Screening Mammogram of both breasts in 1 year. A negative mammogram report should not preclude additional follow up of suspicious palpable abnormalities. Patient should continue monthly self breast exam. A clinical breast exam by your physician is recommended on an annual basis and results should be correlated with mammographic findings. Electronically signed and approved by: Unruly Vaughn D.O. Radiologis
== END | disposition home or self-care (01) ==
LOC: RADMAMWWP 08:37
PROVIDERS: ATTEND Family Medicine
DX: Z12.31 Encounter for screening mammogram for malignant neoplasm of breast (principal); Z78.0 Asymptomatic menopausal state
CPT/HCPCS: 77063; 77067

== ENCOUNTER 2023-08-22 06:00 | Day surgery (SDC) | payer MEDICARE ==
[~2023-08-22 06:00] MED LIST changes: -ALPRAZolam 0.25 MG TAB PO PRN; -ALPRAZolam 0.5 MG TAB PO PRN; -ASPIRIN 325 MG TAB PO STA; -ATORVASTATIN 80 MG TAB PO STA; -NITROGLYCERIN SL TABS 0.4 MG TAB SUBLINGUAL PRN; +SODIUM CHLORIDE 0.9% 1,000 ML IV SCH; -SODIUM CHLORIDE 0.9% 1,000 ML in EMPTY BAG 1 BAG IV ONE
[2023-08-22 06:59] VITALS: TEMP 97
[2023-08-22] MEDS: SODIUM CHLORIDE 0.9% 500 ML DEHP FREE BAG IV STA (07:00)
[2023-08-22] MEDS: IV FLUID CONTINUATION 1,000 ML IV ONE (07:01)
[2023-08-22] MEDS ORDERED: PROPOFOL 10 MG/ML 20 ML VIAL IV ONE (07:11)
[2023-08-22] MEDS ORDERED: LIDOCAINE 1% INJ 10MG/ML (20 ML MDV) ONE (07:11)
[2023-08-22] MEDS ORDERED: PHENYLEPHRINE 10 MG/ML VIAL ONE (07:11)
[2023-08-22] MEDS: BENZOCAINE SPRAY 1 CAN TOPICAL ONE (07:21)
[2023-08-22 07:39] LABS: African American GFR (CKD) 70 (>60 ml/min/1.73 sqM); Anion Gap 7 mmol/L; Blood Urea Nitrogen 26 mg/dL (7-17); Calcium 10.9 mg/dL (8.4-10.2); Carbon Dioxide 25 mmol/L (22-30); Chloride 108 mmol/L (98-107); Glucose 96 mg/dL (74-99); Non-African American GFR(CKD) 61 (>60 ml/min/1.73 sqM); Sodium 140 mmol/L (137-145)
--- NOTE | 2023-08-22 07:48 | P.PCN ---
Date of Procedure: 08/22/23 Description of Procedure: Indication: Atrial fibrillation Procedure Description: After explaining the procedure to the patient, it's risk and complications, blood pressure, heart rate and O2 saturation were monitored. The throat was sprayed with Cetacaine. Patient received sedation per anesthesia department. The probe was introduced into the esophagus without difficulty. Images were obtained. Following that, the probe was removed. There was no immediate complication. Findings: Left atrial size is dilated. No flow into the left atrial appendage was noted. Left ventricular size and systolic function are normal. The aortic valve revealed fibrocalcific changes of the aortic cusps with preserved opening. Mitral valve appears to be normal, tricuspid valve appears to be normal. Pulmonic valve appears to be normal. Descending thoracic aorta revealed mild atherosclerotic changes. No pericardial fusion was noted. Contrast bubble study revealed no shunting across the interatrial septum. The interatrial septum was highly mobile. Doppler: Pulse wave and color Doppler were obtained, and revealed moderate aortic and tricuspid regurgitation with mild mitral regurgitation. There was a suggestion of a small [id number] shunting through a patent foramen ovale. Conclusion: 1. Dilated left atrium 2. Normal ventricle size and systolic function 3. Moderate tricuspid and aortic regurgitation 4. Mild mitral regurgitation 5. Highly mobile interatrial septum with a suggestion of [id number]-[id number] shunting through a patent foramen ovale Cardioversion: After obtaining TERELL and sedated state synchronized biphasic cardioversion using 150 J was performed with buddhist of sinus mechanism. There was no immediate complications.
[2023-08-22] MEDS: SODIUM CHLORIDE 0.9% 1,000 ML IV ONE (08:36)
[2023-08-22] MEDS ORDERED: hydroCHLOROthiazide 25 MG TAB PO SCH (09:00)
[2023-08-22 09:53] VITALS: RESP 18
[2023-08-22 09:54] VITALS: BP 118/80; PULSE 67
[2023-08-22] MEDS ORDERED: FLECAINIDE 50 MG TAB PO SCH (21:00)
[2023-08-22] MEDS ORDERED: ATORVASTATIN 20 MG TAB PO SCH (21:00)
[2023-08-22] MEDS ORDERED: APIXABAN 5 MG TAB PO SCH (21:00)
[2023-08-23] MEDS ORDERED: LOSARTAN 50 MG TAB PO SCH (09:00)
== END 2023-08-22 09:57 | disposition home or self-care (01) ==
LOC: OR 06:00
PROVIDERS: ATTEND Internal Medicine Interventional Cardiology
DX: I48.11 Longstanding persistent atrial fibrillation (principal); I08.3 Combined rheumatic disorders of mitral, aortic and tricuspid valves; I10 Essential (primary) hypertension; E78.2 Mixed hyperlipidemia; I25.10 Atherosclerotic heart disease of native coronary artery without angina pectoris; F17.200 Nicotine dependence, unspecified, uncomplicated; Z79.899 Other long term (current) drug therapy; Z79.01 Long term (current) use of anticoagulants
CPT/HCPCS: 93312; 93320; 93325; 92960; 80048; J2001; J2704; J2371

== ENCOUNTER 2023-10-17 07:54 | Inpatient (IN) | payer MEDICARE ==
[2023-10-17 12:18] LABS: INR 1.1 (<1.2); Prothrombin Time 11.5 sec (10.0-12.5)
[2023-10-17 12:26] LABS: African American GFR (CKD) 74 (>60 ml/min/1.73 sqM); Anion Gap 4 mmol/L; Blood Urea Nitrogen 20 mg/dL (7-17); Calcium 10.6 mg/dL (8.4-10.2); Carbon Dioxide 26 mmol/L (22-30); Chloride 109 mmol/L (98-107); Glucose 90 mg/dL (74-99); Magnesium 2.2 mg/dL (1.6-2.3); Non-African American GFR(CKD) 64 (>60 ml/min/1.73 sqM); Sodium 139 mmol/L (137-145)
[2023-10-17] MEDS: SPIRONOLACTONE 25 MG TAB PO SCH (15:17)
[2023-10-17] MEDS: SODIUM CHLORIDE 0.9% 1,000 ML IV SCH (15:56)
[2023-10-17] MEDS: DOFETILIDE 250 MCG CAP PO SCH (18:00)
[2023-10-17] MEDS: APIXABAN 5 MG TAB PO SCH (18:00)
[2023-10-17] MEDS: ATORVASTATIN 20 MG TAB PO SCH (18:00)
[2023-10-17] MEDS ORDERED: APIXABAN 5 MG TAB PO SCH (21:00)
[2023-10-18] MEDS: LOSARTAN 50 MG TAB PO SCH (06:10)
[2023-10-18] MEDS: MAGNESIUM OXIDE 400 MG TAB PO SCH (06:10)
[2023-10-18 07:15] LABS: African American GFR (CKD) 84 (>60 ml/min/1.73 sqM); Anion Gap 4 mmol/L; Blood Urea Nitrogen 21 mg/dL (7-17); Calcium 10.5 mg/dL (8.4-10.2); Carbon Dioxide 25 mmol/L (22-30); Chloride 108 mmol/L (98-107); Glucose 92 mg/dL (74-99); Magnesium 2.2 mg/dL (1.6-2.3); Non-African American GFR(CKD) 73 (>60 ml/min/1.73 sqM); Potassium 4.4 mmol/L (3.5-5.1); Sodium 137 mmol/L (137-145)
[2023-10-18] MEDS ORDERED: ATORVASTATIN 20 MG TAB PO SCH (09:00)
[2023-10-18] MEDS ORDERED: LOSARTAN 50 MG TAB PO SCH (09:00)
--- NOTE | 2023-10-18 12:28 | P.PN ---
Subjective HISTORY OF PRESENT ILLNESS: Patient examined this morning the bedside. Patient currently denies chest pain or pressure. She denies shortness of breath. She remains in atrial fibrillation with controlled ventricular rate. EKG obtained and reviewed this morning by Dr. Block. PHYSICAL EXAM: VITAL SIGNS: Reviewed. GENERAL: Well-developed in no acute distress. NECK: Supple. No JVD or thyromegaly LUNGS: Respirations even and unlabored. Lungs essentially clear to auscultation bilaterally. HEART: Irregular rate and rhythm. S1 and S2 heard. EXTREMITIES: Normal range of motion. No clubbing or cyanosis. Peripheral pulses intact. No lower extremity edema ASSESSMENT: Persistent atrial fibrillation Hypertension Hyperlipidemia PLAN: Continue current cardiac medications Continue to monitor labs N.p.o. at midnight Patient scheduled to undergo cardioversion tomorrow morning with Dr. Block Patient to receive Tikosyn and Eliquis tomorrow morning at 0600 Nurse practitioner note has been reviewed by physician. Signing provider agrees with the documented findings, assessment, and plan of care documented by FLIGHT DECK OFFICER as a scribe. Objective - Vital Signs Vital signs: Vital Signs Temp 97.8 F 10/18/23 00:00 Pulse 99 10/18/23 07:51 Resp 16 10/18/23 07:51 BP 87/56 10/18/23 07:51 Pulse Ox 96 10/18/23 07:51 FiO2 Intake & Output 10/17/23 10/18/23 10/18/23 18:59 06:59 18:59 Intake Total 200 Balance 200 Weight 95.5 kg Intake: Oral 200 Other: # Voids 2 3 - Labs CBC & Chem 7: 10/18/23 06:27 Labs: Abnormal Lab Results - Last 24 Hours (Table) 10/18/23 Range/Units 06:27 Chloride 108 H (98-107) mmol/L BUN 21 H (7-17) mg/dL Calcium 10.5 H (8.4-10.2) mg/dL
[2023-10-19 04:26] LABS: African American GFR (CKD) >90 (>60 ml/min/1.73 sqM); Anion Gap 3 mmol/L; Blood Urea Nitrogen 22 mg/dL (7-17); Calcium 10.5 mg/dL (8.4-10.2); Carbon Dioxide 21 mmol/L (22-30); Chloride 110 mmol/L (98-107); Glucose 98 mg/dL (74-99); Magnesium 2.1 mg/dL (1.6-2.3); Non-African American GFR(CKD) 79 (>60 ml/min/1.73 sqM); Potassium 4.4 mmol/L (3.5-5.1); Sodium 134 mmol/L (137-145)
[2023-10-19] MEDS ORDERED: PROPOFOL 10 MG/ML 20 ML VIAL IV ONE (07:10)
[2023-10-19] MEDS: LACTATED RINGERS 1,000 ML IV ONE ×2 (07:10→07:31)
[2023-10-19] MEDS ORDERED: LIDOCAINE 1% INJ 10MG/ML (20 ML MDV) ONE (07:10)
--- NOTE | 2023-10-19 10:29 | P.EPPROC ---
- EP Procedure Note Electrophysiology Procedure Note: Diagnosis Persistent symptomatic atrial fibrillation that is failed therapy Patient admitted for inpatient dofetilide initiation 250 mcg twice daily Very mild organization of atrial fibrillation noted Procedure Successful electrical cardioversion with a 200 J biphasic shock in the AP config uration to sinus rhythm with heart rates in the 50s Following that, twelve-lead EKG showed absolute QT interval of 440 ms with heart rates in the 50s Electrolytes are normal today magnesium is normal BUN/creatinine normal Plan continue dofetilide at 250 mcg twice daily and monitor QT interval Continue oral spironolactone and oral magnesium
--- NOTE | 2023-10-19 10:35 | P.HPCAR ---
History of Present Illness This is Dr. Block dictating an H/P on this patient The patient was interviewed and examined IMPRESSION / ASSESSMENT: Persistent atrial fibrillation for about 1 year, paroxysmal prior to that Failed flecainide and electrical cardioversion Symptomatic with tiredness and fatigue despite adequate rate control Preserved LV systolic function with moderate aortic regurgitation and tricuspid regurgitation Normal renal function PLAN: Twelve-lead EKG at baseline shows normal QT interval BUN and creatinine are normal Magnesium was normal I will start dofetilide 250 mcg twice daily and after 3-4 doses we will proceed with an electrical cardioversion as needed Standard monitoring for QT interval Start spironolactone and oral magnesium in addition to her current medications Hydrochlorothiazide has already been discontinued and will remain discontinued as long as she is on dofetilide Telemetry monitoring for 4 to 5 days HPI 72-year-old female persistent atrial fibrillation Patient of Dr. Perera and Dr. Cruz She has had paroxysmal atrial fibrillation since 2019 A year back she became persistent She underwent electrical cardioversion but she stayed in sinus rhythm for only 6 days and went back into [facility] Despite having rate controlled atrial fibrillation, she complains of being tired and fatigued and short of breath even when she climbs 1 flight of stairs 2D echo shows preserved LV size and function with moderate aortic regurgitation and moderate tricuspid regurgitation and mild left atrial enlargement TSH is normal She has already failed flecainide with electrical cardioversion and she is intolerant of flecainide ROS: No fever chills or rigors, no cough, phlegm or expectoration, no nausea, vomiting or diarrhea, no hematuria, dysuria, no musculoskeletal complaints, no strokes or seizures, no skin lesions. EXAMINATION: Blood pressure 129/83 mmHg pulse rate in the 70s afebrile Breath sounds are reduced There are no rhonchi no crackles Heart rates are well-controlled no murmurs no gallops or rub No lower extremity edema No JVD REVIEW OF LABS, ECG & MEDICAL DATA Sodium 139 potassium 4.0 Bicarb 26 BUN 20 creatinine 0.9 Calcium 10.6 Magnesium 2.2 Normal TSH 1.4 Home medications hydrochlorothiazide which was discontinued prior to admission, for initiating dofetilide Atorvastatin losartan 100 mg p.o. daily and Eliquis 5 mg twice daily Physical Exam Vitals: Vital Signs Temp Pulse Resp BP Pulse Ox 10/19/23 08:20 54 L 16 10/19/23 08:02 54 L 16 114/75 94 L 10/19/23 07:47 54 L 16 112/64 95 10/19/23 07:32 61 14 128/85 95 10/19/23 07:20 88 16 126/68 96 10/19/23 04:32 98.0 F 70 18 104/78 96 10/19/23 02:00 75 16 10/18/23 23:55 75 16 106/78 94 L 10/18/23 21:20 98.2 F 86 16 132/84 97 10/18/23 20:00 80 16 10/18/23 17:03 80 16 113/83 97 10/18/23 13:59 81 16 102/74 98 Intake and Output 10/18/23 10/19/23 10/19/23 22:59 06:59 14:59 Intake Total 120 240 218 Balance 120 240 218 Intake: IV 100 Oral 120 240 118 Other: # Voids 1 Weight 95.8 kg Past Medical History Past Medical History: Atrial Fibrillation, Chest Pain / Angina, Hyperlipidemia, Hypertension, Osteoarthritis (OA) Additional Past Medical History / Comment(s): palpitations, stress test, wore heart monitor recently, diverticulitis, "leaky heart valve" History of Any Multi-Drug Resistant Organisms: None Reported Past Surgical History: Breast Surgery, Cholecystectomy, Joint Replacement, Tubal Ligation Additional Past Surgical History / Comment(s): bilateral TKA, D&C, breast biopsy, Herman fundoplication, wilner. cataract, laser eye surg. spinal degeneration, skin cancer biopsy Past Anesthesia/Blood Transfusion Reactions: Postoperative Nausea & Vomiting (PONV) Additional Past Anesthesia/Blood Transfusion Reaction / Comment(s): PONV one time only Past Psychological History: No Psychological Hx Reported Smoking Status: Never smoker Past Alcohol Use History: None Reported Past Drug Use History: None Reported - Past Family History Father Family Medical History: Cancer Mother Family Medical History: No Reported History Additional Family Medical History / Comment(s): passed from Parkinson's Physical Examination Vital Signs Temp Pulse Resp BP Pulse Ox 10/19/23 08:20 54 L 16 10/19/23 08:02 54 L 16 114/75 94 L 10/19/23 07:47 54 L 16 112/64 95 10/19/23 07:32 61 14 128/85 95 10/19/23 07:20 88 16 126/68 96 10/19/23 04:32 98.0 F 70 18 104/78 96 10/19/23 02:00 75 16 10/18/23 23:55 75 16 106/78 94 L 10/18/23 21:20 98.2 F 86 16 132/84 97 10/18/23 20:00 80 16 10/18/23 17:03 80 16 113/83 97 10/18/23 13:59 81 16 102/74 98 Intake and Output 10/18/23 10/19/23 10/19/23 22:59 06:59 14:59 Intake Total 120 240 218 Balance 120 240 218 Intake: IV 100 Oral 120 240 118 Other: # Voids 1 Weight 95.8 kg Results 10/19/23 03:42 Comprehensive Metabolic Panel 10/19/23 Range/Units 03:42 Sodium 134 L (137-145) mmol/L Potassium 4.4 (3.5-5.1) mmol/L Chloride 110 H (98-107) mmol/L Carbon Dioxide 21 L (22-30) mmol/L BUN 22 H (7-17) mg/dL Creatinine 0.75 (0.52-1.04) mg/dL Glucose 98 (74-99) mg/dL Calcium 10.5 H (8.4-10.2) mg/dL Current Medications Generic Name Dose Route Start Last Admin Trade Name Freq PRN Reason Stop Dose Admin Apixaban 5 mg 10/17/23 19:00 10/19/23 05:48 Apixaban 5 Mg Tab PO 5 mg 0700,1900 REPLACED BY [facility] Administration Protocol Atorvastatin Calcium 20 mg 10/17/23 19:00 10/18/23 18:01 Atorvastatin 20 Mg Tab PO 20 mg 1900 ODESSA Administration Dofetilide 250 mcg 10/17/23 18:00 10/19/23 05:48 Dofetilide 250 Mcg Cap PO 250 mcg Q12HR@0600,1800 REPLACED BY [facility] Administration Losartan Potassium 100 mg 10/18/23 07:00 10/19/23 09:23 Losartan 50 Mg Tab PO 100 mg 0700 ODESSA Administration Magnesium Oxide 400 mg 10/18/23 09:00 10/19/23 09:23 Magnesium Oxide 400 Mg Tab PO 400 mg DAILY ODESSA Administration Spironolactone 25 mg 10/17/23 13:15 10/19/23 09:23 Spironolactone 25 Mg Tab PO 25 mg DAILY ODESSA Administration Intake and Output 10/18/23 10/19/23 10/19/23 22:59 06:59 14:59 Intake Total 120 240 218 Balance 120 240 218 Intake: IV 100 Oral 120 240 118 Other: # Voids 1 Weight 95.8 kg 10/19/23 03:42
[2023-10-19] MEDS: MAGNESIUM SULFATE-D5W PMX 1 GM in DEXTROSE/WATER 1 100ML.BAG IVPB SCH (20:45)
[2023-10-20 07:39] LABS: African American GFR (CKD) 76 (>60 ml/min/1.73 sqM); Anion Gap 6 mmol/L; Blood Urea Nitrogen 28 mg/dL (7-17); Calcium 10.4 mg/dL (8.4-10.2); Carbon Dioxide 26 mmol/L (22-30); Chloride 108 mmol/L (98-107); Glucose 93 mg/dL (74-99); Magnesium 2.2 mg/dL (1.6-2.3); Non-African American GFR(CKD) 66 (>60 ml/min/1.73 sqM); Potassium 4.4 mmol/L (3.5-5.1); Sodium 140 mmol/L (137-145)
[2023-10-20 09:02] VITALS: TEMP 97.9
--- NOTE | 2023-10-20 10:58 | P.DS ---
Providers Date of admission: 10/17/23 09:04 Attending physician: Juan Block Primary care physician: Benedict Cruz [facility] Course: This is 73-year-old female who was admitted to the hospital secondary to initiation of dofetilide treatment. Patient underwent electrical cardioversion on 10/19/2023. She is maintaining sinus mechanism. She denies any chest pain or pressure. She denies any shortness of breath. QTa on the day of discharge between [id number]. Patient was deemed stable for discharge home today from a cardiac standpoint. Patient's hydrochlorothiazide was discontinued. She was also started on Aldactone and magnesium. Please see EMR for further hospital course details. Discharge diagnosis Persistent atrial fibrillation, status post initiation of dofetilide treatment and electrical cardioversion Nurse practitioner note has been reviewed by physician. Signing provider agrees with the documented findings, assessment, and plan of care documented by SURVEY SUPERVISOR as a scribe. Plan - Discharge Summary Discharge Rx Participant: Yes New Discharge Prescriptions: New Dofetilide [Tikosyn] 250 mcg PO Q12HR@0600,1800 #14 cap Dofetilide [Tikosyn] 250 mcg PO Q12HR #180 cap Spironolactone [Aldactone] 25 mg PO DAILY #90 tab Magnesium Oxide [Mag-Ox] 400 mg PO DAILY #90 tab Continue Losartan Potassium [Cozaar] 100 mg PO DAILY Atorvastatin [Lipitor] 20 mg PO HS Apixaban [Eliquis] 5 mg PO BID Discontinued hydroCHLOROthiazide [Hydrodiuril] 12.5 mg PO DIRECTED Discharge Medication List Losartan Potassium [Cozaar] 100 mg PO DAILY 06/27/17 [History] Apixaban [Eliquis] 5 mg PO BID 04/01/22 [History] Atorvastatin [Lipitor] 20 mg PO HS 08/16/23 [History] Dofetilide [Tikosyn] 250 mcg PO Q12HR #180 cap 10/20/23 [Rx] Dofetilide [Tikosyn] 250 mcg PO Q12HR@0600,1800 #14 cap 10/20/23 [Rx] Magnesium Oxide [Mag-Ox] 400 mg PO DAILY #90 tab 10/20/23 [Rx] Spironolactone [Aldactone] 25 mg PO DAILY #90 tab 10/20/23 [Rx] Follow up Appointment(s)/Referral(s): Juan Block MD [STAFF PHYSICIAN] - 1 Week
[2023-10-20 12:09] VITALS: BP 100/59; PULSE 58; RESP 18
--- NOTE | 2023-10-20 13:16 | P.DS ---
Providers Date of admission: 10/17/23 09:04 Attending physician: Juan Block Primary care physician: [facility] Course: Detailed discussion with the patient regarding the do's and don'ts of dofetilide this morning after evaluating QT Interval Patient Feels Well No Dizziness Lightheadedness Palpitations She Maintains Sinus Rhythm Heart Rates Been in the 50s and 60s with PACs and Occasional PVCs Normal Heart Sounds No Murmurs or Gallops or Rubs Normal Breath Sounds Regular No JVD Abdomen Soft Lungs Clear Electrolytes Normal Sodium 140, Potassium 4.4 BUN 28 Creatinine 0.87 Magnesium 2.2 Normal TSH Absolute QT Interval Is between 420-440 Ms Heart Rate in the 50s Today after the Sixth Dose of Dofetilide Impression Persistent Atrial Fibrillation, Symptomatic Failed Therapy with Flecainide in the past Admitted for Dofetilide Initiation Underwent Electrical Cardioversion Yesterday Maintain Sinus Rhythm Now Absolute QT Interval of Less Than 440 Ms Normal Renal Function and Electrolytes, Stable Detailed discussion regarding dofetilide use with the patient and her family members Plan Discharge Home Today and Follow-Up with Dr. Perera in [address] Block in 3 Months Plan - Discharge Summary Discharge Rx Participant: Yes New Discharge Prescriptions: New RX: Dofetilide [Tikosyn] 250 mcg PO Q12HR@0600,1800 #14 cap Dofetilide [Tikosyn] 250 mcg PO Q12HR #180 cap RX: Spironolactone [Aldactone] 25 mg PO DAILY #90 tab RX: Magnesium Oxide [Mag-Ox] 400 mg PO DAILY #90 tab Continue RX: Losartan Potassium [Cozaar] 100 mg PO DAILY RX: Atorvastatin [Lipitor] 20 mg PO HS RX: Apixaban [Eliquis] 5 mg PO BID Discontinued hydroCHLOROthiazide [Hydrodiuril] 12.5 mg PO DIRECTED Discharge Medication List RX: Losartan Potassium [Cozaar] 100 mg PO DAILY 06/27/17 [History] RX: Apixaban [Eliquis] 5 mg PO BID 04/01/22 [History] RX: Atorvastatin [Lipitor] 20 mg PO HS 08/16/23 [History] Dofetilide [Tikosyn] 250 mcg PO Q12HR #180 cap 10/20/23 [Rx] RX: Dofetilide [Tikosyn] 250 mcg PO Q12HR@0600,1800 #14 cap 10/20/23 [Rx] RX: Magnesium Oxide [Mag-Ox] 400 mg PO DAILY #90 tab 10/20/23 [Rx] RX: Spironolactone [Aldactone] 25 mg PO DAILY #90 tab 10/20/23 [Rx] Follow up Appointment(s)/Referral(s): Juan Block MD [STAFF PHYSICIAN] - 1 Week
== END 2023-10-20 14:30 | disposition home or self-care (01) | DRG 310 ==
LOC: 3SCARD 09:04
PROVIDERS: ADMIT Internal Medicine Clinical Cardiac Electrophysiology; ATTEND Internal Medicine Clinical Cardiac Electrophysiology
PROC: 3E033GC Introduction of Other Therapeutic Substance into Peripheral Vein, Percutaneous Approach (ICD-10-PCS; 2023-10-17)
PROC: 5A2204Z Restoration of Cardiac Rhythm, Single (ICD-10-PCS; principal; 2023-10-19 07:15)
DX: I48.19 Other persistent atrial fibrillation (principal); E78.5 Hyperlipidemia, unspecified; I08.2 Rheumatic disorders of both aortic and tricuspid valves; M19.90 Unspecified osteoarthritis, unspecified site; I10 Essential (primary) hypertension; Z79.01 Long term (current) use of anticoagulants; Z79.899 Other long term (current) drug therapy; Z85.828 Personal history of other malignant neoplasm of skin; Z96.653 Presence of artificial knee joint, bilateral; Z28.310 Unvaccinated for COVID-19

== ENCOUNTER → 2023-12-13 | Outpatient (CLI) | payer MEDICARE ==
--- NOTE | 2023-12-14 12:40 | MM ---
Reason for Exam: Screening (asymptomatic). Last mammogram was performed 1 year(s) and 3 month(s) ago. Patient History: Menarche at age 12. First Full-Term at age 20. Postmenopausal. 1987, Benign Excisional Biopsy on the right side. Risk Values: Cynthia 5 year model risk: 1.9%. NCI Lifetime model risk: 4.3%. Prior Study Comparison: 02/12/2020 Bilateral Screening Mammogram, [facility]. 02/15/2021 Bilateral Screening Mammogram, [facility]. 08/30/2022 Bilateral MG 3D screening mammo w/cad, [facility]. Tissue Density: The breasts are almost entirely fatty. Findings: Analyzed By CAD. Right breast: There is no suspicious group of microcalcifications or new suspicious mass. Left breast: There is no suspicious group of microcalcifications or new suspicious mass. Overall Assessment: Negative, BI-RAD 1 Management: Screening Mammogram of both breasts in [address] [facility] will attempt to contact patient to return for supplemental views and ultrasound if indicated. Patient should continue monthly self-breast exams. A clinical breast exam by your physician is recommended on an annual basis. This exam should not preclude additional follow-up of suspicious palpable abnormalities. Note on Cynthia scores and lifetime risk: 1. A Cynthia score greater than 3% is considered moderate risk. If this is the case, consider specialist referral to assess eligibility for a risk reducing agent. 2. If overall lifetime risk for the development of breast cancer is 20% or higher, the patient may qualify for future screening with alternating mammogram and breast MRI. [facility], , 12/14/2023 12:37 PM. Electronically signed and approved by: Ponce Mccabe DO
== END | disposition home or self-care (01) ==
LOC: RADMAMWWP 13:26
PROVIDERS: ATTEND Family Medicine
DX: Z12.31 Encounter for screening mammogram for malignant neoplasm of breast (principal); Z78.0 Asymptomatic menopausal state
CPT/HCPCS: 77063; 77067

== ENCOUNTER → 2024-01-08 | Outpatient (CLI) | payer MEDICARE ==
[2024-01-08 16:24] LABS: ALT 34 U/L (8-44); AST 25 U/L (13-35); Albumin 4.4 g/dL (3.8-4.9); Alkaline Phosphatase 106 U/L (41-126); Blood Urea Nitrogen 20.8 mg/dL (9.0-27.0); Calcium 10.6 mg/dL (8.7-10.3); Carbon Dioxide 22.3 mmol/L (21.6-31.8); Chloride 108 mmol/L (96-109); Chol/HDL Ratio 2.69 Ratio; Glucose 104 mg/dL (70-110); LDL Cholesterol,Calculated 65.2 mg/dL (0.0-131.0); Magnesium 2.1 mg/dL (1.5-2.4); Potassium 4.6 mmol/L (3.5-5.5); Sodium 140 mmol/L (135-145); Total Bilirubin 0.9 mg/dL (0.3-1.2); Total Protein 6.4 g/dL (6.2-8.2); VLDL Calculation 18.32 mg/dL (5.00-40.00)
== END | disposition home or self-care (01) ==
LOC: LABWHC1 08:45
PROVIDERS: ATTEND Internal Medicine Interventional Cardiology
DX: I48.11 Longstanding persistent atrial fibrillation (principal); E78.2 Mixed hyperlipidemia
CPT/HCPCS: 36415; 80053; 80061; 83735

== ENCOUNTER → 2024-06-10 | Outpatient (CLI) | payer MEDICARE, OTHER ==
[2024-06-10 15:36] LABS: HCT 43.6 % (37.2-46.3); HGB 13.7 g/dL (12.0-15.0); MCH 31.9 pg (27.0-32.0); MCHC 31.4 g/dL (32.0-37.0); MCV 101.4 FL (80.0-97.0); Mean Platelet Volume 11.9 FL (9.5-12.2); NRBC Per 100 WBC 0 X 10*3/uL (0.00-0.01); Platelet Count 186 X 10*3/uL (140-440); RDW 12.3 % (11.5-14.5); WBC 5.22 X 10*3/uL (4.50-10.00)
[2024-06-10 15:50] LABS: Blood Urea Nitrogen 19.3 mg/dL (9.0-27.0)
[2024-06-10 15:51] LABS: Carbon Dioxide 24.4 mmol/L (21.6-31.8); Chloride 107 mmol/L (96-109); Potassium 4.4 mmol/L (3.5-5.5); Sodium 140 mmol/L (135-145)
== END | disposition home or self-care (01) ==
LOC: LABWHC1 08:50
PROVIDERS: ATTEND Internal Medicine Clinical Cardiac Electrophysiology
DX: Z01.812 Encounter for preprocedural laboratory examination (principal); I48.19 Other persistent atrial fibrillation
CPT/HCPCS: 36415; 80051; 82565; 84520; 85027

== ENCOUNTER 2024-06-17 09:08 | Day surgery (SDC) | payer MEDICARE ==
[2024-06-13 13:59] VITALS: BMI 36.2
[~2024-06-17 09:08] MED LIST changes: +HYDROmorphone 0.5 MG/0.5 ML SYRINGE IVP PRN; +MIDAZOLAM 2 MG/2 ML VIAL IV PRN; -SODIUM CHLORIDE 0.9% 1,000 ML IV SCH
[2024-06-17] MEDS: IV FLUID CONTINUATION 1,000 ML IV ONE (09:40)
[2024-06-17] MEDS ORDERED: SUCCINYLCHOLINE CHLORIDE 200 MG/10 ML VIAL IV ONE (10:55)
[2024-06-17] MEDS ORDERED: LIDOCAINE 1% INJ 10MG/ML (20 ML MDV) ONE (10:55)
[2024-06-17] MEDS ORDERED: GLYCOPYRROLATE 0.2 MG/ML 2 ML VIAL ONE (10:55)
[2024-06-17] MEDS ORDERED: fentaNYL (PF) 50 MCG/ML 2 ML AMP ONE (10:55)
[2024-06-17] MEDS ORDERED: ePHEDrine 50 MG/ML 1 ML VIAL ONE (10:55)
[2024-06-17] MEDS ORDERED: PROTAMINE SULFATE 10 MG/ML 5 ML VIAL ONE (10:55)
[2024-06-17] MEDS ORDERED: PROPOFOL 10 MG/ML 20 ML VIAL IV ONE (10:55)
[2024-06-17] MEDS ORDERED: PHENYLEPHRINE 10 MG/ML VIAL ONE (10:55)
[2024-06-17] MEDS ORDERED: HEPARIN SODIUM,PORCINE 10,000 UNIT/ML 1 ML VIAL ONE (10:55)
[2024-06-17] MEDS: HEPARIN SODIUM,PORCINE 10,000 UNIT in SODIUM CHLORIDE 0.9% 1,000 ML IRRIGATION ONE (11:00)
[2024-06-17] MEDS: HEPARIN SODIUM,PORCINE (1 ML) 2,500 UNIT in SODIUM CHLORIDE 0.9% 250 ML IRRIGATION ONE (11:01)
[2024-06-17] MEDS ORDERED: ACETAMINOPHEN TAB 325 MG TAB PO PRN (11:22)
--- NOTE | 2024-06-17 11:22 | P.EPPROC ---
- EP Procedure Note Electrophysiology Procedure Note: This is Dr. Block dictating an H&P this is Dr. Block dictating an H/P on this patient The patient was interviewed and examined IMPRESSION / ASSESSMENT: Persistent atrial fibrillation, recurrent episodes of A-fib on dofetilide Increased BMI Mild left atrial enlargement Preserved LV systolic function, moderate aortic regurgitation PLAN: EP study and A-fib ablation Heparin dose was calculated Continue Eliquis Continue dofetilide post A-fib ablation Monitor creatinine/renal function and electrolytes HPI Patient has a history of atrial fibrillation. She is now on dofetilide. However she continues to have atrial fibrillation, paroxysms despite dofetilide At this time she has no fever chest discomfort dizziness lightheadedness or palpitations in the last few days No fever chills cough expectoration No lower extremity edema ROS: No fever chills or rigors, no cough, phlegm or expectoration, no nausea, vomiting or diarrhea, no hematuria, dysuria, no musculoskeletal complaints, no strokes or seizures, no skin lesions. EXAMINATION: Blood pressure 142/79 mmHg pulse rate in the 70s afebrile Breath sounds are clear no rhonchi no crackles Heart sounds S1-S2 normal no murmurs no gallop no rub Abdomen soft nontender No lower extremity edema No JVD REVIEW OF LABS, ECG & MEDICAL DATA Medications at this time include magnesium oxide, Aldactone, atorvastatin, losartan, dofetilide 250 mcg twice daily and Eliquis TSH is normal at 2.7 In May renal function was normal with a creatinine of 0.8 potassium is 4.4
[2024-06-17] MEDS: HEPARIN SOD,PORK IN 0.45% NACL 25,000 UNIT in 0.45% NACL 1 250ML.BAG IV ONE (11:36)
[2024-06-17] MEDS: LIDOCAINE 1% INJ 10MG/ML (20 ML MDV) SQ ONE (11:38)
[2024-06-17] MEDS: IOPAMIDOL-370 100ML BTL INJ ONE (12:10)
[2024-06-17] MEDS: SODIUM CHLORIDE 0.9% 500 ML 500 ML IV ONE (14:17)
[2024-06-17] MEDS: MAGNESIUM SULFATE-D5W PMX 1 GM in DEXTROSE/WATER 1 100ML.BAG IVPB SCH (14:20)
--- NOTE | 2024-06-17 15:03 | P.EPPROC ---
- EP Procedure Note Electrophysiology Procedure Note: PROCEDURE A. fib ablation with pulmonary vein isolation and left atrial roof ablation DIAGNOSIS Persistent atrial fibrillation, symptomatic, refractory to therapy even with dofetilide RESULT No left atrial appendage mass seen on intracardiac echo Successful A. fib ablation/pulmonary vein isolation of all veins using cryo- ablation Complete entrance block in all 4 veins confirmed No evidence for phrenic nerve injury Esophageal deflection YES Electrical cardioversion with a synchronized shock across the chest YES / NO PROCEDURE DETAILS Written informed consent prior to procedure. Patient brought to the EP lab. General anesthesia given. Heparin administered. A city maintained above 300 seconds Both groins prepped and draped per protocol and venous sheaths placed. Esophagus intubated, circa catheter for temperature monitoring an endoscope for possible esophageal deflection. Phrenic nerve monitoring performed. Esophageal temperature monitoring performed. Esophageal deflection performed if circa catheter overlapping with the balloon or circa temperature less than 27.5°C Intracardiac echocardiography performed. Pericardium evaluated. Left atrial appendage evaluated. Left atrium evaluated along with pulmonary veins Transseptal catheterization performed under fluoroscopic guidance and intracardiac echo guidance Cryoablation sheath exchanged, balloon catheter along with achieve catheter placed in the left atrium. Pulmonary veins isolated in the following sequence: Left superior pulmonary vein followed by left inferior pulmonary vein, followed by right inferior pulmonary vein and lastly right superior pulmonary vein. Phrenic nerve stimulation along with capture thresholds within the SVC and right superior pulmonary vein to identify the phrenic nerve proximity to the cryo- balloon. Pulmonary veins isolated and confirmed with entrance and exit block. Phrenic nerve integrity confirmed at the end of the procedure Ablation of the left atrial roof performed with sequential lesions from the left superior to the right superior pulmonary veins. Ablation of the electrograms confirmed with a chief catheter At the end of the procedure atrial fibrillation was induced simply with catheter manipulation on the left sided pulmonary veins. Even though they were completely isolated, atrial fibrillation was induced Electrical cardioversion performed for persistence of atrial fibrillation despite successful ablation. Sinus cycle length 1039, IL interval 163 ms, QRS 112 and QT 427 ms Sinus node recovery times were 1475, 1507 and 1357 ms Slow pathway noted for 40 ms AV node Wenckebach block 410 ms Atrial stimulation was performed from the high right atrium with bursts stimulation Diagnostic catheters for the high right atrium, His bundle, coronary sinus placed. LA and RA pressures recorded LA pressure: Diagnostic EP study with coronary sinus pacing and recording Baseline measurements: Venous sheaths were removed and hemostasis assured with a closure device. Patient extubated and transferred to recovery Increase procedural time During ablation multiple attempts had to be made to move the esophagus a safe distance of the from the pulmonary vein draining cryoablation, to avoid excessive thermal cooling of the esophagus This took extra time and effort to keep the esophagus a safe distance away from the cryoablation balloon. This was a long procedure on account of a very unusual cardiac rotation, very posteriorly oriented right sided veins, and difficult occlusion of both left- sided veins. Multiple attempts were made for each and every pulmonary vein before good occlusion and adequate temperatures could be achieved All pulmonary veins were completely isolated and entry-level. At 3-minute followed by 2-minute protocol was followed for each vein, sub-selecting a different tributary for each vein for each cryo lesion PROCEDURES PERFORMED Diagnostic EP study CS pacing and recording Left and right transseptal catheterization Catheter the mapping of the tachycardia Intracardiac echocardiography Pulmonary vein isolation with transseptal and comprehensive EPS, 98144 Extended procedure duration Left atrial roof line, +[id number] Electrical cardioversion with a synchronized shock across the chest [id number]
--- NOTE | 2024-06-17 15:05 | P.HPCAR ---
History of Present Illness Electrophysiology Procedure Note: This is Dr. Block dictating an H&P this is Dr. Block dictating an H/P on this patient The patient was interviewed and examined IMPRESSION / ASSESSMENT: Persistent atrial fibrillation, recurrent episodes of A-fib on dofetilide Increased BMI Mild left atrial enlargement Preserved LV systolic function, moderate aortic regurgitation PLAN: EP study and A-fib ablation Heparin dose was calculated Continue Eliquis Continue dofetilide post A-fib ablation Monitor creatinine/renal function and electrolytes HPI Patient has a history of atrial fibrillation. She is now on dofetilide. However she continues to have atrial fibrillation, paroxysms despite dofetilide At this time she has no fever chest discomfort dizziness lightheadedness or palpitations in the last few days No fever chills cough expectoration No lower extremity edema ROS: No fever chills or rigors, no cough, phlegm or expectoration, no nausea, vomiting or diarrhea, no hematuria, dysuria, no musculoskeletal complaints, no strokes or seizures, no skin lesions. EXAMINATION: Blood pressure 142/79 mmHg pulse rate in the 70s afebrile Breath sounds are clear no rhonchi no crackles Heart sounds S1-S2 normal no murmurs no gallop no rub Abdomen soft nontender No lower extremity edema No JVD REVIEW OF LABS, ECG & MEDICAL DATA Medications at this time include magnesium oxide, Aldactone, atorvastatin, losartan, dofetilide 250 mcg twice daily and Eliquis TSH is normal at 2.7 In May renal function was normal with a creatinine of 0.8 potassium is 4.4 Physical Exam Vitals: Vital Signs Temp Pulse Pulse Resp BP BP BP 06/17/24 14:50 69 16 103/60 06/17/24 14:35 97.1 F L 67 18 98/62 06/17/24 09:54 98.2 F 72 16 147/94 142/79 Pulse Ox 06/17/24 14:50 96 06/17/24 14:35 95 06/17/24 09:54 95 Intake and Output 06/17/24 06/17/24 06/17/24 06:59 14:59 22:59 Intake Total 978 Balance 978 Intake: IV 978 Past Medical History Past Medical History: Atrial Fibrillation, Chest Pain / Angina, Hyperlipidemia, Hypertension, Osteoarthritis (OA), Pneumonia Additional Past Medical History / Comment(s): See Dr. Block's H&P. Palpitations, "leaky heart valve". Diverticulitis. Hospitalized for pneumonia 20 years ago. Hx of infection in arm. History of Any Multi-Drug Resistant Organisms: None Reported Past Surgical History: Breast Surgery, Cholecystectomy, Joint Replacement, Tubal Ligation Additional Past Surgical History / Comment(s): See Dr. Soliss H&P. Cardioversion, B/L TKA, D&C, breast biopsy, Herman fundoplication, B/L cataract, laser eye surg for glaucoma. Past Anesthesia/Blood Transfusion Reactions: Postoperative Nausea & Vomiting (PONV) Additional Past Anesthesia/Blood Transfusion Reaction / Comment(s): PONV once; had blood transfusion post B/L TKA-no reactions reported. Smoking Status: Never smoker - Past Family History Father Family Medical History: Cancer Additional Family Medical History / Comment(s): Passed from esophageal CA Mother Family Medical History: No Reported History Additional Family Medical History / Comment(s): Passed from Parkinson's Physical Examination Vital Signs Temp Pulse Pulse Resp BP BP BP 06/17/24 14:50 69 16 103/60 06/17/24 14:35 97.1 F L 67 18 98/62 06/17/24 09:54 98.2 F 72 16 147/94 142/79 Pulse Ox 06/17/24 14:50 96 06/17/24 14:35 95 06/17/24 09:54 95 Intake and Output 06/17/24 06/17/24 06/17/24 06:59 14:59 22:59 Intake Total 978 Balance 978 Intake: IV 978 Results Current Medications Generic Name Dose Route Start Last Admin Trade Name Freq PRN Reason Stop Dose Admin Acetaminophen 650 mg 06/17/24 11:22 Acetaminophen Tab 325 Mg Tab PO 07/17/24 11:21 Q6HR PRN Mild Pain (Scale 1 to 3) Apixaban 5 mg 06/17/24 21:00 Apixaban 5 Mg Tab PO 07/17/24 20:59 BID ODESSA Protocol Atorvastatin Calcium 20 mg 06/17/24 21:00 Atorvastatin 20 Mg Tab PO 07/17/24 20:59 HS ODESSA Dofetilide 250 mcg 06/17/24 18:00 Dofetilide 250 Mcg Cap PO 07/17/24 17:59 Q12HR ODESSA Hydromorphone HCl 0.5 mg 06/17/24 07:00 Hydromorphone 0.5 Mg/0.5 Ml Syringe IVP 06/17/24 23:00 Q5M PRN Phase 1 or 2 - Pain Control Sodium Chloride 1,000 mls @ 20 mls/hr 06/17/24 06:04 Saline 0.9% IV 07/17/24 06:03 .Q24H ODESSA Lactated Ringer's 1,000 mls @ 20 mls/hr 06/17/24 06:04 Lactated Ringers IV 07/17/24 06:03 .Q24H ODESSA Magnesium Sulfate/Dextrose 1 100 mls @ 100 mls/hr 06/17/24 14:15 gm/ IV Solution IVPB 06/17/24 16:14 Q1H ODESSA Losartan Potassium 100 mg 06/18/24 09:00 Losartan 50 Mg Tab PO 07/18/24 08:59 DAILY ODESSA Magnesium Oxide 400 mg 06/18/24 09:00 Magnesium Oxide 400 Mg Tab PO 07/18/24 08:59 DAILY ODESSA Midazolam HCl 2 mg 06/17/24 07:00 Midazolam 2 Mg/2 Ml Vial IV 06/17/24 23:00 ONCE PRN Pre-Op Anxiety Sodium Chloride 12 ml 06/17/24 11:22 Sodium Chloride 0.9% Flush 10 Ml Syringe IV 07/17/24 11:21 Q12HR PRN Line Flush Spironolactone 25 mg 06/18/24 09:00 Spironolactone 25 Mg Tab PO 07/18/24 08:59 DAILY ODESSA Intake and Output 06/17/24 06/17/24 06/17/24 06:59 14:59 22:59 Intake Total 978 Balance 978 Intake: IV 978
--- NOTE | 2024-06-17 15:06 | P.PRLE ---
RE: Emma Pabon Dear Benedict Emma underwent an EP study and ablation for atrial fibrillation. She is already on dofetilide but I would continue dofetilide since she has fairly refractory A-fib She will continue Eliquis uninterrupted especially for the next 2 months post ablation to reduce the risk of stroke Thank you for entrusting me with the care of the patient Warm regards Sincerely Juan Block
[2024-06-17] MEDS: ACETAMINOPHEN IV (For NPO) 1,000 MG in EMPTY BAG 1 BAG IVPB ONE (15:44)
[2024-06-17] MEDS: LACTATED RINGERS 1,000 ML IV SCH (16:43)
[2024-06-17] MEDS: SODIUM CHLORIDE 0.9% 1,000 ML IV SCH (16:43)
[2024-06-17] MEDS ORDERED: DOFETILIDE 250 MCG CAP PO SCH ×2 (18:00→21:00)
[2024-06-17] MEDS: APIXABAN 5 MG TAB PO SCH (20:15)
[2024-06-17] MEDS: ATORVASTATIN 20 MG TAB PO SCH (20:15)
[2024-06-17] MEDS: DOFETILIDE 250 MCG CAP PO SCH (20:25)
[2024-06-18 04:33] VITALS: TEMP 98.6
[2024-06-18 07:59] VITALS: BP 111/74; PULSE 67; RESP 14
[2024-06-18] MEDS: MAGNESIUM OXIDE 400 MG TAB PO SCH (08:04)
[2024-06-18] MEDS: LOSARTAN 50 MG TAB PO SCH (08:04)
[2024-06-18] MEDS: SPIRONOLACTONE 25 MG TAB PO SCH (08:05)
--- NOTE | 2024-06-18 14:20 | P.DS ---
Providers Expected date of discharge: 06/18/24 Attending physician: Juan Block Primary care physician: Benedict Cruz [facility] Course: This is a 73-year-old female patient brought into the hospital under the care of Dr. Block for persistent atrial fibrillation with recurrent episodes of A-fib on Tikosyn. Patient underwent ablation yesterday and plan is to continue patient on Tikosyn at current dose, continue Eliquis uninterrupted for the next 2 months. Patient is seen today on the unit. She is in a sinus rhythm. She is complaining of rash where the stickers were on her chest. Blood pressure 111/74, heart rate in the 60s, pulse ox 93% on room air. TSH 2.68. Physical examination: Breath sounds are clear no rhonchi no crackles Heart sounds S1-S2 normal no murmurs no gallop no rub Abdomen soft nontender No lower extremity edema No JVD Assessment: Persistent atrial fibrillation, recurrent episodes of A-fib on dofetilide status post ablation Increased BMI Mild left atrial enlargement Preserved LV systolic function, moderate aortic regurgitation Plan: Discharge patient home today in stable condition Nurse practitioner note has been reviewed, I agree with documented findings and plan of care. Patient was seen and examined. Plan - Discharge Summary Discharge Rx Participant: No New Discharge Prescriptions: Continue Losartan Potassium [Cozaar] 100 mg PO DAILY Atorvastatin [Lipitor] 20 mg PO HS Mv-Min/FA/Vit K/Lutein/Zeaxant [Preservision Areds 2 Plus Mv] 1 each PO DAILY Apixaban [Eliquis] 5 mg PO BID Dofetilide [Tikosyn] 250 mcg PO Q12HR #180 cap Spironolactone [Aldactone] 25 mg PO DAILY #90 tab Magnesium Oxide [Mag-Ox] 400 mg PO DAILY #90 tab Discharge Medication List Losartan Potassium [Cozaar] 100 mg PO DAILY 06/27/17 [History] Apixaban [Eliquis] 5 mg PO BID 04/01/22 [History] Atorvastatin [Lipitor] 20 mg PO HS 08/16/23 [History] Dofetilide [Tikosyn] 250 mcg PO Q12HR #180 cap 10/20/23 [Rx] Magnesium Oxide [Mag-Ox] 400 mg PO DAILY #90 tab 10/20/23 [Rx] Spironolactone [Aldactone] 25 mg PO DAILY #90 tab 10/20/23 [Rx] Mv-Min/FA/Vit K/Lutein/Zeaxant [Preservision Areds 2 Plus Mv] 1 each PO DAILY 06/13/24 [History] Follow up Appointment(s)/Referral(s): Marcela Perera MD [STAFF PHYSICIAN] - 1 Week (Patient to make appointment ) Patient Instructions/Handouts: A-fib (Atrial Fibrillation) (DC), Rectal Bleeding (DC) Activity/Diet/Wound Care/Special Instructions: Post EP study - Ablation instructions 1. Keep access sites dry for 2 days. 2. No heavy lifting or straining for 2 days. 3. Avoid bending the hips repeatedly for 2 days. 4. You may go up and down stairs slowly 5. If you have had an ablation for atrial fibrillation or atrial flutter and are on a blood thinner, do not stop the blood thinner even temporarily for 3 months post ablation Call if the following is noted 1. Bleeding, increasing swelling or pain at the access sites. 2. Increasing chest discomfort, especially upon taking a deep breath. 3. Increasing shortness of breath, at rest or with exertion. 4. Undue cough / phlegm 5. Difficulty or pain while swallowing. 6. Pain or change in color in the extremities. 7. Fever, chills, rigors. 8. Increasing headache or neurologic symptoms. 9. Dizziness, fainting, palpitations For patients who have undergone an A-fib ablation /atrial flutter ablation Strict instruction; do NOT stop anticoagulation (Eliquis/Xarelto/Pradaxa) for the next 2 months temporarily, for any elective, nonurgent surgery. This increases the risk of stroke, post A-fib ablation Discharge Disposition: HOME SELF-CARE
== END 2024-06-18 10:20 | disposition home or self-care (01) ==
LOC: CATHEP 09:08 → 6NMEDSUR 14:44 → 3SCARD 15:12 → CATHEP 06-18 10:20
PROVIDERS: ATTEND Internal Medicine Clinical Cardiac Electrophysiology
DX: I48.19 Other persistent atrial fibrillation (principal); E78.5 Hyperlipidemia, unspecified; I10 Essential (primary) hypertension; I35.1 Nonrheumatic aortic (valve) insufficiency; M19.90 Unspecified osteoarthritis, unspecified site; Z79.01 Long term (current) use of anticoagulants; Z90.49 Acquired absence of other specified parts of digestive tract; Z98.890 Other specified postprocedural states; Z79.899 Other long term (current) drug therapy
CPT/HCPCS: 92960; 93656; 93657; 86900; 86901; 84443; 86850; C1894; C1769; C1760; C1730 ×2; C1759; C1733; C1766; J0330; J2720; J1644 ×3; J2003; J3010; J3475; J0131; J2704; Q9967; J2371; J1596